=== PATIENT | female | born 1970 | race Caucasian/White ===

== ENCOUNTER → 2021-11-07 15:17 | Outpatient (CLI) | payer OTHER, SELFPAY ==
--- NOTE | ~2021-11-07 | XR_ITS ---
XR lumbar spine min 4V DATE: 11/07/2021 15:59 INDICATION: Right mid back pain for 2 to 3 weeks. No injury. TECHNIQUE: AP, lateral, bilateral oblique views, coned lateral lumbosacral view COMPARISON: None FINDINGS: No fracture, spondylolysis or spondylolisthesis. The lumbar pedicles are intact. Lumbar and lumbosacral interspaces are relatively preserved. There is minimal degenerative spurring of the lumb ar spine. The sacral iliac joints are intact. IMPRESSION: Minimal degenerative change Reviewed, dictated and finalized at location A. IMPRESSION: Minimal degenerative change
--- NOTE | ~2021-11-07 | XR_ITS ---
XR thoracic spine 3V DATE: 11/07/2021 15:59 INDICATION: Right mid back pain for 2 to 3 weeks. No injury. TECHNIQUE: AP, lateral, swimmer views COMPARISON: None FINDINGS: Diffuse idiopathic skeletal hyperostosis of the thoracic spine. .No fracture or dislocation or bone destruction. The thoracic pedicles are intact. No paraspinal soft tissue thickening. Radiopaque sutures overlie the medial left upper quadrant. There is calcification of the mid to dista l abdominal aorta without apparent aneurysm. IMPRESSION: Diffuse idiopathic skeletal hyperostosis Reviewed, dictated and finalized at location A.
== END ==
PROVIDERS: PCP Emergency Medicine; Visit Provider Emergency Medicine
DX: M54.50 Low back pain, unspecified (principal); M48.14 Ankylosing hyperostosis [Forestier], thoracic region
CPT/HCPCS: 72072; 72110